=== PATIENT | male | born 1970 | race Caucasian/White ===

== ENCOUNTER → 2020-02-15 08:55 | Outpatient (CLI) | payer OTHER, SELFPAY ==
--- NOTE | ~2020-02-15 | XR_ITS ---
XR wrist RT min 3V DATE: 02/15/2020 09:13 INDICATION: Wrist joint pain TECHNIQUE: 4 views COMPARISON: None FINDINGS: No fracture or dislocation, periosteal reaction or bone destruction, joint space narrowing, erosive change or chondrocalcinosis. IMPRESSION: Negative Reviewed, dictated and finalized at location A. IMPRESSION: Negative
== END ==
PROVIDERS: PCP Family Medicine; Visit Provider Nurse Practitioner Family
DX: M25.531 Pain in right wrist (principal)
CPT/HCPCS: 73110

== ENCOUNTER 2020-10-12 11:39 | Emergency (ER) | payer OTHER, SELFPAY ==
--- NOTE | 2020-10-12 11:48 | ED.WOUNDLAC ---
HPI - Wound/Laceration General Chief Complaint: Wound/Laceration Stated Complaint: Laceration/Wound Time Seen by Provider: 10/12/20 12:05 Source: patient and RN notes reviewed Mode of arrival: ambulatory Limitations: no limitations History of Present Illness HPI narrative: 49-year-old male presents concern for laceration to the fifth digit of his left hand. Reports approximately 45 minutes prior to arrival he was pulling weeds and lacerated the hand on a blade of grass. Reports after 15 minutes of direct pressure the wound continued to bleed. Extremity Location: Left: hand Related Data Home Medications Medication Instructions Recorded Confirmed omeprazole 40 mg capsule,delayed 40 mg PO DAILY 07/15/19 10/12/20 release Allergies Allergy/AdvReac Type Severity Reaction Status Date / Time hydrocodone AdvReac Unknown Nausea Verified 10/12/20 12:07 Review of Systems Review of Systems: Narrative: CONSTITUTIONAL: Denies malaise, chills, sweats, or fever. SKIN: Laceration to the fifth digit on left hand MUSCULOSKELETAL: Denies muscle skeletal pain, decreased strength, decreased range of motion NEUROLOGIC: Denies numbness, weakness All systems reviewed & are unremarkable except as noted in HPI and below PMFSH Past Medical History Medical History (Updated 10/12/20 @ 12:16 by Oralia Oreilly NP) Barretts esophagus Class 3 severe obesity due to excess calories without serious comorbidity in adult Essential hypertension GERD (gastroesophageal reflux disease) Obstructive sleep apnea Prediabetes Surgical History Surgical History (Updated 03/27/20 @ 13:07 by Zoila Wilkinson CMA) History of endoscopy Family History Family History Father Diabetes mellitus Hypertension Family history of cardiovascular disease Grandparent Family history of lung cancer Family history of primary malignant neoplasm of liver Social History Social History Smoking status: Never smoker Second hand tobacco smoke exposure: No Alcohol intake: never Comments At time of signature, agree with nursing past medical, surgical, social and family history. There is no relevant family history pertinent to the presenting complaint Exam Narrative: Exam Narrative: GENERAL: Well-appearing, well-nourished, and in no acute distress. HEAD: Normocephalic, atraumatic. EYES: PERRLA, conjunctivae clear ENT: Mucous membranes moist. Oropharynx without edema, erythema or lesions. NECK: Supple. No lymphadenopathy CHEST: Clear to auscultation. No respiratory distress. HEART: Regular rate and rhythm. SKIN: Warm, dry. 2 cm v-shaped laceration noted to the palmar aspect of the fifth digit of the left hand, superficial, no bleeding at this time. Musculoskeletal: Normal strength, range of motion, sensation in the fifth digit of the left hand NEURO: Alert and oriented x3. PSYCH: Normal mood and affect Course Course Emergency Course: Patient's wound began to rebleed, let gel applied. 10 minutes of let gel application, wound still bleeding slightly. Patient is aware of diagnosis, understands and agrees to treatment plan. Anticipatory guidance given. Patient agrees to follow-up as directed and is aware of reasons to seek care at the emergency department. Portions of this record may have been created with voice recognition software Vital Signs Vital signs: Vital Signs Temperature 98.1 F 10/12/20 11:55 Pulse Rate 100 10/12/20 11:55 Respiratory Rate 20 10/12/20 11:55 Blood Pressure 148/69 H 10/12/20 11:55 Pulse Oximetry 98 10/12/20 11:55 Temperature 98.1 F 10/12/20 11:55 Pulse Rate 100 10/12/20 11:55 Respiratory Rate 20 10/12/20 11:55 Blood Pressure 148/69 H 10/12/20 11:55 Pulse Oximetry 98 10/12/20 11:55 Reviewed. MDM - Wound/Laceration MDM Narrative Medical decision making narrative: Wound is superfici
[2020-10-12 11:55] VITALS: BP 148/69; PULSE 100; RESP 20; TEMP 36.7; O2SAT 98
[2020-10-12] MEDS: LIDOCAINE, EPINEPHRINE, TETRACAINE VISCOUS SOLN 3 ML TOPICAL (12:22)
== END 2020-10-12 12:50 | disposition home or self-care (01) ==
PROVIDERS: Emergency Provider Nurse Practitioner; PCP Family Medicine
DX: S61.217A Laceration without foreign body of left little finger without damage to nail, initial encounter (principal); W45.8XXA Other foreign body or object entering through skin, initial encounter; K22.70 Barrett's esophagus without dysplasia; I10 Essential (primary) hypertension; K21.9 Gastro-esophageal reflux disease without esophagitis; R73.03 Prediabetes
CPT/HCPCS: 99212; G0463